=== PATIENT | male | born 1940 | race Caucasian/White ===

== ENCOUNTER 2018-07-09 13:39 | Emergency (ER) | payer MEDICARE, OTHER ==
[2018-07-09 13:40] VITALS: PULSE 140; BMI 32.8
--- NOTE | 2018-07-09 15:47 | ED PDOC ---
HPI: General Adult Time Seen by Provider: 07/09/18 13:53 Chief Complaint (Nursing): Male Genitourinary Chief Complaint (Provider): "rodriguez is leaking" History Per: EMS History/Exam Limitations: clinical condition Additional History Per: Penitentiary, Prior Records Additional Complaint(s): 77yo male, brought to ER by EMS from an outpatient radiology site where the patient was having a barium swallow exam for evaluation of a possible leaky rodriguez. Patient is a resident of [facility], and history is unobtainable from patient due to confusion. History taken from EMS as well as transfer paperwork. Prior records reviewed and patient was recently admitted to [facility] due to a GI bleed; patient was taken off his anticoagulants (which he takes for AFib). PMD: Reese Reynoso Past Medical History Reviewed: Historical Data, Nursing Documentation, Vital Signs Vital Signs: Last Vital Signs Temp 97 F L 07/09/18 13:42 Pulse 88 07/09/18 13:42 Resp 18 07/09/18 13:42 BP 160/108 H 07/09/18 13:42 Pulse Ox 98 07/09/18 13:42 - Medical History PMH: Anemia, Atrial Fibrillation, CAD, CHF, Diabetes, HTN, Hypercholesterolemia Denies: Arthritis, COPD, Deep Vein Thrombosis, HIV, Hypothyroidism, Chronic Kidney Disease, Rheumatoid Arthritis - Surgical History Surgical History: Coronary Stent Denies: Pacemaker - Family History Family History: States: Unknown Family Hx - Immunization History Hx Tetanus Toxoid Vaccination: No Hx Influenza Vaccination: Yes Hx Pneumococcal Vaccination: Yes - Home Medications Home Medications: Ambulatory Orders Medication Instructions Recorded RX: Furosemide [Lasix] 40 mg PO DAILY #30 tablet 05/16/18 Famotidine [Pepcid] 20 mg PO DAILY #30 tab 06/20/18 RX: Ascorbic Acid [Vitamin C 500 500 mg PO BID tab 06/20/18 mg Tab] RX: Clopidogrel [Plavix] 75 mg PO DAILY tab 06/20/18 RX: Docusate [Colace] 100 mg PO TID cap 06/20/18 RX: Finasteride [Proscar] 5 mg PO DAILY tab 06/20/18 RX: Gabapentin [Neurontin] 100 mg PO DAILY cap 06/20/18 RX: Multivitamin [Multi-Delyn 5 ml PO DAILY syr 06/20/18 Liquid] RX: Rosuvastatin Calcium [Crestor] 5 mg PO HS tab 06/20/18 RX: Sucralfate [Carafate Oral Susp] 1 gm PO QID udc 06/20/18 RX: Tamsulosin [Flomax] 0.4 mg PO DAILY cap 06/20/18 RX: hydrALAZINE [Apresoline] 10 mg PO QID tab 06/20/18 Acetaminophen [Tylenol 325mg tab] 650 mg PO Q4 PRN 07/09/18 Levalbuterol [Xopenex] 1.25 mg IH Q6 PRN 07/09/18 Mirtazapine [Remeron] 15 mg PO HS 07/09/18 RX: Acetaminophen [Tylenol 325mg 650 mg PO Q4 PRN 07/09/18 tab] RX: Bacitracin/Neomycin/Polymyxin 1 appl TOP BID 07/09/18 [Neosporin Triple Antibiotic Oint] RX: Insulin Aspart, Recombinant 2 - 6 unit SC ACHS 07/09/18 [Novolog] RX: Lidocaine 5% [Lidoderm] 1 patch TD DAILY 07/09/18 RX: Linezolid [Zyvox] 600 mg PO Q12 07/09/18 RX: Metoprolol Tartrate [Lopressor] 75 mg PO Q12 07/09/18 RX: Potassium Chloride [Klor-Con 20 meq PO BID 07/09/18 10] RX: Zinc Oxide [Secura Protective] 1 appl TOP QSHIFT 07/09/18 RX: oxyCODONE/Acetaminophen 1 tab PO Q4H PRN 07/09/18 [Percocet 5/325 mg Tab] Silver Sulfadiazine 1% [Silvadene 1 appl TOP BID 07/09/18 1%] clonazePAM [Klonopin] 0.5 mg PO Q8 07/09/18 - Allergies Allergies/Adverse Reactions: Allergies Allergy/AdvReac Type Severity Reaction Status Date / Time No Known Allergies Allergy Verified 06/11/18 17:15 Review of Systems Review Of Systems: ROS cannot be obtained secondary to pt's inabilty to answer questions. (confusion) Physical Exam - Reviewed Nursing Documentation Reviewed: Yes Vital Signs Reviewed: Yes - Physical Exam Appears: Negative for: Well (chronically ill appearing) Head Exam: Positive for: ATRAUMATIC, NORMAL INSPECTION, NORMOCEPHALIC Skin: Positive for: Normal Color Eye Exam: Positive for: Normal appearance Neck: Positive for: Supple Cardiovascular/Chest: Positive for: Regular Rate, Rhythm Respiratory: Positive for: Normal Breath Sounds Gastrointestinal/Abdominal: Positive for: Soft. Negative for: Tenderness Male Genital Exam: Positive for: other (rodriguez catheter appears intact; no blader distention noted; clear urine noted in bag. No blood noted at penile meatus.) Back: Positive for: Other (small sacral decubitus ulcer noted) Neurologic/Psych: Positive for: Alert (alert but confused), Other (left sided hemiplegia) - Laboratory Results Result Diagrams: 07/09/18 15:40 07/09/18 16:18 - ECG O2 Sat by Pulse Oximetry: 98 (RA) Pulse Ox Interpretation: Normal Medical Decision Making Medical Decision Makinyo male brought by EMS from outpatient facility due to confusion Patient noted to have left sided hemiplegia of unknown onset; [facility] does not elucidate onset of hemiplegia JAGDISH Baker called [facility] for further history, which was unable to be provided. [facility] MINING ENGINEER Zheng Barry called, who communicated with Dr. Reynoso and reports the left sided weakness is old. Plan: -- Based on LEONILA Barry's request, CT Head ordere -- Labs -- EKG -- Urinalysis 1630 CT Head FINDINGS: HEMORRHAGE: No intracranial hemorrhage. BRAIN: No mass effect or edema. Atrophy. Chronic microvascular ischemic changes. Left ahumada radiata and right basal ganglia encephalomalacia. VENTRICLES: Mildly prominent. No hydrocephalus. CALVARIUM: Unremarkable. PARANASAL SINUSES: Unremarkable as visualized. No significant inflammatory changes. MASTOID AIR CELLS: Bilateral opacification. OTHER FINDINGS: None. IMPRESSION: Bilateral mastoid air cell opacification. No acute intracranial pathology. Age-related changes. No significant interval change. 1800 On re-exam, patient with no mastoid tenderness, no erythema. Patient noted to have mild hypokalemia, will give 1 dose potassium in ER. Resting comfortably in ED, remains w L sided weakness per primary care team is chronic. Evidence of uti but only rare bacteria, will await culture report for prescribing antibiotics as likely chronic colonization, urine clear yellow nonturbid Patient stable for discharge to [facility], and instructions given for barium swallow test. Scribe Attestation: Documented by Salma Grewal acting as a scribe for Francisco Martinez DO. Provider Attestation: All medical record entries made by the Scribe were at my direction and personally dictated by me. I have reviewed the chart and agree that the record accurately reflects my personal performance of the history, physical exam, medical decision making, and the department course for this patient. I have also personally directed, reviewed, and agree with the discharge instructions and disposition. Disposition - Clinical Impression Clinical Impression: Complication of Rodriguez catheter, Buttock pain - Patient ED Disposition Is Patient to be Admitted: No Counseled Patient/Family Regarding: Studies Performed, Diagnosis - Disposition Referrals: Reese Reynoso MD [Medical Doctor] - Disposition: Rehab Facility/Unit Disposition Time: 18:06 Condition: STABLE Additional Instructions: Per report, patient has chronic left sided weakness. Rodriguez catheter in ED functional and draining clear yellow urine. Followup urine culture 1-2 days for infection vs chronic colonization. Discussed with Annalisa Barry from [place] who communicated with Dr Hernandez. Accession No. : [id number] Patient Name / ID : SHANTEL ADAMS N / [id number] Exam Date : 07/09/2018 15:45:49 ( Approved ) Study Comment : Sex / Age : M / 77Y Creator : Clemente Santizo MD Dictator : Clemente Santizo MD Brewery Cellar Worker : Wiring Inspector : Clemente Santizo MD Approver2 : Report Date : 07/09/2018 16:18:59 My Comment : Date of service: 07/09/2018 PROCEDURE: CT HEAD WITHOUT CONTRAST. HISTORY: r/o ICH COMPARISON: CT head dated 07/06/2018.. TECHNIQUE: Axial computed tomography images were obtained through the head/brain without intravenous contrast. Radiation dose: Total exam DLP = 955.87 mGy-cm. This CT exam was performed using one or more of the following dose reduction techniques: Automated exposure control, adjustment of the mA and/or kV according to patient size, and/or use of iterative reconstruction technique. FINDINGS: HEMORRHAGE: No intracranial hemorrhage. BRAIN: No mass effect or edema. Atrophy. Chronic microvascular ischemic changes. Left ahumada radiata and right basal ganglia encephalomalacia. VENTRICLES: Mildly prominent. No hydrocephalus. CALVARIUM: Unremarkable. PARANASAL SINUSES: Unremarkable as visualized. No significant inflammatory changes. MASTOID AIR CELLS: Bilateral opacification. OTHER FINDINGS: None. IMPRESSION: Bilateral mastoid air cell opacification. No acute intracranial pathology. Age-related changes. No significant interval change. Instructions: Rodriguez Catheter, Male Forms: [employer] (Paraguayan)
[2018-07-09 15:56] LABS: BASO # 0.1 K/uL (0.0-0.2); BASO % 1.4 % (0.0-2.0); EOS # 0.4 K/uL (0.0-0.7); EOS % 7.5 % (0.0-4.0); HEMOGLOBIN 10.6 g/dL (12.0-18.0); LYMPH # 1.3 K/uL (1.0-4.3); LYMPH % 24.2 % (20.0-40.0); MEAN CORPUSCULAR HEMOGLOBIN 29.8 pg (27.0-31.0); MEAN CORPUSCULAR HGB CONC 33.1 g/dL (33.0-37.0); MONO # 0.3 K/uL (0.0-0.8); NEUT # 3.4 K/uL (1.8-7.0); NEUT % 60.9 % (50.0-75.0); RBC 3.56 Mil/uL (4.40-5.90); RED CELL DISTRIBUTION WIDTH 16.6 % (11.5-14.5); WHITE BLOOD COUNT 5.6 K/uL (4.8-10.8)
[2018-07-09 16:02] LABS: INR 1.1
[2018-07-09 16:05] LABS: PARTIAL THROMBOPLASTIN TIME 34.2 Seconds (25.6-37.1)
--- NOTE | 2018-07-09 16:22 | CT ---
Date of service: 07/09/2018 PROCEDURE: CT HEAD WITHOUT CONTRAST. HISTORY: r/o ICH COMPARISON: CT head dated 07/06/2018.. TECHNIQUE: Axial computed tomography images were obtained through the head/brain without intravenous contrast. Radiation dose: Total exam DLP = 955.87 mGy-cm. This CT exam was performed using one or more of the following dose reduction techniques: Automated exposure control, adjustment of the mA and/or kV according to patient size, and/or use of iterative reconstruction technique. FINDINGS: HEMORRHAGE: No intracranial hemorrhage. BRAIN: No mass effect or edema. Atrophy. Chronic microvascular ischemic changes. Left ahumada radiata and right basal ganglia encephalomalacia. VENTRICLES: Mildly prominent. No hydrocephalus. CALVARIUM: Unremarkable. PARANASAL SINUSES: Unremarkable as visualized. No significant inflammatory changes. MASTOID AIR CELLS: Bilateral opacification. OTHER FINDINGS: None. IMPRESSION: Bilateral mastoid air cell opacification. No acute intracranial pathology. Age-related changes. No significant interval change.
[2018-07-09 16:34] LABS: URINE AMORPHOUS SEDIMENT RARE /ul (<OCC); URINE BACTERIA RARE (<OCC); URINE BILIRUBIN NEGATIVE (NEGATIVE); URINE BLOOD NEGATIVE (NEGATIVE); URINE COLOR YELLOW (YELLOW); URINE GLUCOSE (UA) NEG (NEGATIVE); URINE HYALINE CAST 0-2 /hpf (0-2); URINE LEUKOCYTE ESTERASE MOD Leu/uL (Negative); URINE PROTEIN 100 mg/dL (NEGATIVE); URINE UROBILINOGEN 0.2-1.0 mg/dL (0.2-1.0)
[2018-07-09 16:35] LABS: URINE CLARITY CLOUDY (Clear)
[2018-07-09 17:26] LABS: ALB/GLOB RATIO 0.7 (1.0-2.1); ALBUMIN 2.8 g/dL (3.5-5.0); ALT/SGPT 21 U/L (21-72); AST/SGOT 18 U/L (17-59); BLOOD UREA NITROGEN 14 mg/dl (9-20); CALCIUM 8.9 mg/dL (8.4-10.2); GFR NON-AFRICAN AMERICAN 45
[2018-07-09] MEDS ORDERED: Potassium Chloride 20 mEq ER Tab PO ONE ×2 (18:04→19:47)
[2018-07-09 23:09] VITALS: BP 149/86; PULSE 88; RESP 18; TEMP 98.1
--- NOTE | 2018-07-10 12:24 | CARD ---
APPROVED REPORT Date of service: 07/09/2018 EKG Measurement Heart [id number] <Conclusion> Atrial fibrillation Left axis deviation Inferior infarct, age undetermined Anteroseptal infarct, age undetermined T wave abnormality, consider lateral ischemia Prolonged QT Abnormal ECG
[2018-07-11 16:07] VITALS: O2SAT 98
== END 2018-07-09 22:40 ==
LOC: H.ER 13:39
DX: E11.9 Type 2 diabetes mellitus without complications (principal); Z79.4 Long term (current) use of insulin; Z95.5 Presence of coronary angioplasty implant and graft; I25.10 Atherosclerotic heart disease of native coronary artery without angina pectoris; I11.0 Hypertensive heart disease with heart failure; I48.91 Unspecified atrial fibrillation; Y84.6 Urinary catheterization as the cause of abnormal reaction of the patient, or of later complication, without mention of misadventure at the time of the procedure; M54.5 Low back pain